=== PATIENT | female | born 1955 | race Caucasian/White ===

== ENCOUNTER 2023-12-20 11:48 | Day surgery (SDC) | payer MEDICARE, SELFPAY ==
--- NOTE | 2023-12-20 | PATH_ITS ---
[facility] Accession Number: [id number] No. of containers..01 Tissue . 01 Material submitted: . colon - ASCENDING COLON POLYPS . 01 Diagnosis: ASCENDING COLON POLYPS: 1. Tubular adenoma. 2. Inflammatory polyp, with focal ulceration. No dysplasia or granulomas identified. [facility] 12/27/2023 1230 Local . 01 Electronically signed: . Abdi Berumen MD, Pathologist NPI- [id number] . 01 Gross description: . Received in formalin with two patient identifiers and ascending colon polyps, are two jorgensen soft tissue fragments, both measuring 0.3 cm in greatest dimension. Submitted entirely in A1. ([id number]) /MRV 12/27/2023 1230 Local . 01 Pathologist provided ICD-10: D12.2 . 01 CPT . 201916 Specimen Comment: A courtesy copy of this report has been sent to [phone] Performed at: [address] [facility] [address], [place], [place] [id number] MD Abdi Berumen MD Phone: [phone]
--- NOTE | 2023-12-20 12:14 | PM.HP.1 ---
History of Present Illness History of Present Illness Date Patient Seen: 12/20/23 Time Patient Seen: 12:14 Chief complaint: SDC Narrative: 68-year-old female with a prior history of hemorrhoids at colonoscopy in 2014 here for symptoms of longstanding intermittent rectal bleeding. She denies chronic diarrhea nor chronic constipation. Sometimes even after a bike ride she can have blood staining her undergarments. Meds Home Medications and Allergies Allergies Allergy/AdvReac Type Severity Reaction Status Date / Time ciprofloxacin Allergy Severe Hives Verified 12/20/23 12:16 Sulfa (Sulfonamide Allergy Unknown possible Verified 12/20/23 12:16 Antibiotics) hives-patient unsure lisinopril AdvReac Unknown Cough Verified 12/20/23 12:16 Review of Systems Review of Systems ROS: Yes All systems reviewed with the patient and are negative except as otherwise documented Exam Const General: cooperative HENMT Head: normal to inspection Eyes General: appearance normal, both eyes and all related structures Neck Neck: normal visual inspection Chest Chest: normal inspection of the chest Resp Effort & Inspection: normal respiratory effort Cardio Rate: regular rate GI Inspection: normal to inspection Skin General: no rashes or lesions noted Neuro General: patient alert and patient awake Extrem General: normal to inspection and no pedal edema Psych Appearance: grossly normal Assessment & Plan Assessment & Plan narrative: 68-year-old female with longstanding intermittent frequent red blood per rectum. Colonoscopy is pursued today.
--- NOTE | 2023-12-20 12:16 | PM.PREOP ---
Pre-operative Note Interval Note History & Physical reviewed/Exam performed by Physician: Yes Changes to H&P: No ASA Class (for procedural sedation): III
[2023-12-20 12:27] VITALS: BP 116/78; PULSE 88; RESP 12; TEMP 36.4; O2SAT 97
--- NOTE | 2023-12-20 13:16 | PM.OP.COLON ---
Operative Date/Time/Diagnoses Date of procedure: 12/20/23 Time of procedure: 13:16 Pre-op diagnosis: Rectal bleeding Post-op diagnosis: same Procedure & Clinicians Study performed: Colonoscopy with cold snare polypectomy Same procedure as scheduled: Yes Indications: Rectal bleeding Surgeon: Jorge Blair Procedure Notes SCOAP/Timeout: Done Procedure in detail: After the risks and benefits were explained, written and verbal informed consent was obtained. The patient was brought into the procedure room and placed into the left lateral decubitus position. Please see anesthesia note for sedation details. Digital rectal examination was accomplished. The scope was introduced into the patient and advanced under direct visualization to the cecum as identified by the appendiceal orifice and ileocecal valve. The scope was slowly withdrawn to carefully examine the mucosa for any defects or lesions. Comprehensive imaging was accomplished throughout the rectum including the dentate line. The colon was decompressed, the scope was then removed from the patient who tolerated the procedure well. Scope withdrawal time: 10 minutes Sedation minutes: 15 Complications: none Impression: The patient had evidence of grade 3 nonbleeding nonthrombosed hemorrhoids. Moderate diverticulosis was encountered all throughout the sigmoid. There were 2 4-5 mm sessile polyps in the ascending colon removed with cold snare. No additional mucosal pathology was appreciated throughout. The terminal ileum was interrogated and appeared visually normal. Endoscopic diagnosis 1. Grade 3 hemorrhoids 2. Diverticulosis 3. 2 diminutive polyps Post-procedure Plan for aftercare: 1. Await histology 2. Repeat colonoscopy 7 years. 3. Consider intermittent warm Epsom salt baths to reduce hemorrhoidal engorgement. 4. Consider trial of an [id number] fiber supplement to regulate stool consistency and frequency. Disposition: PACU
[2023-12-20 13:19] VITALS: BP 100/58; PULSE 90; RESP 21; TEMP 36.2; O2SAT 94
[2023-12-20 13:24] VITALS: BP 101/63; PULSE 91; RESP 14; O2SAT 93
[2023-12-20 13:29] VITALS: BP 107/65; PULSE 82; RESP 15; O2SAT 97
[2023-12-20 13:52] VITALS: BP 109/66; PULSE 80; RESP 14; TEMP 36.1; O2SAT 98
== END 2023-12-20 14:04 | disposition home or self-care (01) ==
PROVIDERS: Referring Provider Internal Medicine Gastroenterology; Visit Provider Internal Medicine Gastroenterology
PROC: 0DJD8ZZ Inspection of Lower Intestinal Tract, Via Natural or Artificial Opening Endoscopic (ICD-10-PCS; CPT 45378; principal; 2023-12-20 13:00)
DX: K62.5 Hemorrhage of anus and rectum (principal); K64.2 Third degree hemorrhoids; K57.30 Diverticulosis of large intestine without perforation or abscess without bleeding; D12.2 Benign neoplasm of ascending colon; K51.40 Inflammatory polyps of colon without complications
CPT/HCPCS: 45385; J2704